=== PATIENT | male | born 1960 | race Caucasian/White ===

== ENCOUNTER → 2017-03-02 | Outpatient (CLI) | payer OTHER ==
--- NOTE | 2017-03-02 16:44 | RAD ---
Bilateral lower extremity venous Doppler ultrasound History: Left lower extremity swelling for 2 weeks. Comparison: None. Procedure: Color Doppler, spectral Doppler, and grayscale images are obtained with and without compression in the area of the common femoral vein, superficial femoral vein - femoral vein junction, main femoral vein (superficial femoral vein) and popliteal vein. Veins of the proximal calf are also imaged. Findings: Right lower shotty is without evidence of deep venous thrombosis. Left common femoral vein and left femoral vein without evidence of deep venous thrombosis. The left popliteal vein demonstrates nonocclusive deep venous thrombosis, age indeterminate. One of left peroneal veins also appears noncompressible, suggesting nonocclusive deep venous thrombosis. Impression: 1. Nonocclusive deep venous thrombosis can be seen involving left popliteal vein and one of the left calf veins. 2. No evidence of right lower extremity deep venous thrombosis.
== END | disposition home or self-care (01) ==
LOC: US 15:51
PROVIDERS: ATTEND Physician Assistant
DX: I82.491 Acute embolism and thrombosis of other specified deep vein of right lower extremity (principal); M79.661 Pain in right lower leg; R60.0 Localized edema
CPT/HCPCS: 93970

== ENCOUNTER → 2017-06-14 | Outpatient (CLI) | payer OTHER ==
--- NOTE | 2017-06-14 11:30 | NUR ---
PT came in outpatient for bladder scan. First scan showed 312. Pt voided 200mL and post void scan showed 25ml. Faxed results to Dr Murrieta. Keena MCCORMICK
[2017-06-14 12:05] VITALS: BP 151/76
== END | disposition home or self-care (01) ==
LOC: OPS 11:15
PROVIDERS: ATTEND Family Medicine
DX: N51 Disorders of male genital organs in diseases classified elsewhere (principal); R35.1 Nocturia
CPT/HCPCS: 51798